=== PATIENT | female | born 1975 | race African-American/Black ===

== ENCOUNTER → 2021-12-11 | Outpatient (CLI) | payer OTHER ==
--- NOTE | 2021-12-11 16:54 | RAD ---
US PELVIS W/TV History: Reason: EXCESSIVE AND FREQUENT MENSTRUATION / Spl. Instructions: / History: Comparison: None Technique: Grayscale and color Doppler imaging of the pelvis was performed using transabdominal and t ransvaginal technique. Findings: The uterus measures 9.4 x 6.7 x 6.2 cm. Ill-defined masslike appearance of the myometrium with distor tion of the endometrium degrading evaluation. Increased vascularity within the uterus. Somewhat discr ete hyperechoic lesion within the myometrium measures 1.3 x 1.0 x 1.1 cm. Nabothian cysts noted. Right ovary measures 4.9 x 1.1 x 3.1 cm. Hypoechoic right ovarian lesion measures 2.0 x 1.3 x 1.4 cm. Dominant right ovarian follicle measures 1.5 cm. Left ovary measures 2.8 x 1.6 x 1.4 cm. Normal Doppler flow to the ovaries. Small pelvic free fluid. IMPRESSION: 1. Heterogeneous ill-defined appearance of the myometrium, may relate to fibroids. 2. Hypoechoic right ovarian lesion, may represent complicated cyst or mass. Recommend ultrasound fol low-up. 3. Small pelvic free fluid. Electronically signed by: Gilbert Lew DO (12/11/2021 4:51 PM) [id number]
== END ==
LOC: US 12:56
PROVIDERS: ATTEND Physician Assistant
DX: N92.0 Excessive and frequent menstruation with regular cycle (principal); N88.8 Other specified noninflammatory disorders of cervix uteri
CPT/HCPCS: 76830; 76856